=== PATIENT | female | born 1955 | race African-American/Black ===

== ENCOUNTER 2022-11-23 09:04 | Emergency (ER) | payer OTHER ==
[2022-11-23 09:09] VITALS: BP 168/84; PULSE 82; RESP 18; TEMP 98.3; BMI 27.3
[2022-11-23] MEDS ORDERED: DEXAMETHASONE SOD PHOSPHATE 10 MG/1 ML VIAL IVPUSH ONE (10:07)
[2022-11-23] MEDS ORDERED: FAMOTIDINE 20 MG/50 ML IVPB 20 MG/50 ML MG IVPB ONE ×2 (10:08→10:14)
[2022-11-23] MEDS ORDERED: amLODIPine BESYLATE 10 MG TABLET (FP) PO ONE (10:08)
[2022-11-23] MEDS ORDERED: DEXAMETHASONE SOD PHOSPHATE 10 MG/1 ML VIAL ONE (10:14)
[2022-11-23] MEDS ORDERED: amLODIPine BESYLATE 10 MG TABLET (FP) ONE (10:14)
[2022-11-23 11:02] LABS: BASO % 1.1 % (0-2.0); EOS % 1.6 % (0-4.5); HEMATOCRIT 39.1 % (32.4-45.2); HEMOGLOBIN 13.6 GM/dL (10.7-15.3); LYMPH % 35.7 % (8-40); MCH 30.2 pg (25.7-33.7); MCHC 34.8 g/dl (32.0-36.0); MEAN CELL VOLUME 86.6 fl (80-96); MEAN PLT VOLUME 8.5 fl (7.5-11.1); MONO % 7.6 % (3.8-10.2); PLATELET COUNT 225 10^3/uL (134-434); RBC 4.52 M/mm3 (3.60-5.2); RDW 12.6 % (11.6-15.6); WHITE BLOOD COUNT 3.5 K/mm3 (4.0-10.0)
[2022-11-23 11:12] LABS: ALBUMIN 4.1 g/dl (3.4-5.0); CALCIUM 9.9 mg/dL (8.5-10.1)
[2022-11-23 11:17] LABS: BILIRUBIN,TOTAL 0.3 mg/dL (0.2-1); TOT PROT 7.9 g/dl (6.4-8.2)
== END 2022-11-23 13:37 | disposition home or self-care (01) ==
LOC: JER 09:04
PROC: 3E033GC Introduction of Other Therapeutic Substance into Peripheral Vein, Percutaneous Approach (ICD-10-PCS; principal; 2022-11-23)
PROC: 3E033GC Introduction of Other Therapeutic Substance into Peripheral Vein, Percutaneous Approach (ICD-10-PCS; 2022-11-23)
PROC: 3E033GC Introduction of Other Therapeutic Substance into Peripheral Vein, Percutaneous Approach (ICD-10-PCS; 2022-11-23)
DX: R22.0 Localized swelling, mass and lump, head (principal); T78.3XXA Angioneurotic edema, initial encounter
CPT/HCPCS: 36415; 80053; 85025; 99284-25; J1100

== ENCOUNTER 2024-10-10 06:26 | Day surgery (SDC) | payer OTHER ==
[2024-10-07 16:15] VITALS: BMI 28.7
[2024-10-10 07:55] VITALS: TEMP 98
[2024-10-10 08:20] VITALS: RESP 16
[2024-10-10 08:24] VITALS: BP 114/65; PULSE 64
== END 2024-10-10 08:34 | disposition home or self-care (01) ==
LOC: JASU-ENDO 06:26
PROVIDERS: ATTEND Internal Medicine Gastroenterology
PROC: 0DJD8ZZ Inspection of Lower Intestinal Tract, Via Natural or Artificial Opening Endoscopic (ICD-10-PCS; principal; 2024-10-10 07:30)
DX: Z12.11 Encounter for screening for malignant neoplasm of colon (principal)